=== PATIENT | female | born 1995 | race African-American/Black ===

== ENCOUNTER 2016-10-19 20:29 | Emergency (ER) | payer BC ==
--- NOTE | ~2016-10-19 | CR72 ---
[facility] A Service of [facility] & [facility] RADIOLOGY TEXT RESULTS PATIENT: EV LEIGH LOCATION: [facility] : [birth year] UNIT #: [id number] AGE: [address]: Yissel Chaudhry MD SEX: F ORDER DR: [id number] [facility] [address] [place], [place] [address] [id number] MR#: [id number] Acc #: [id number] NAME: EV LEIGH : 1995 SEX: F STUDY DATE/TIME: UNIT: [facility] ROOM: STUDY DESCRIPTION: CR Chest Single View Portable Attending Physician: Yissel Chaudhry M.D. Ordering Physician: Yissel Chaudhry M.D. Primary Care Physician: Primary Care Physician No MEDICAL IMAGING REPORT This report is preliminary unless electronic signature is present EXAM Portable chest 10/20 and 0037 hours INDICATIONS Fever for the last 2 days with nausea and vomiting. TECHNIQUE/COMPARISON AP portable chest was obtained. No comparison. FINDINGS Cardiac and mediastinal contours are normal. There is some mild left base atelectasis. Lung volumes overall are low. The lungs otherwise are clear. No pneumothorax. IMPRESSION Low-volume inspiration with some mild left base atelectasis. Dictated by... Gaudencio Pena Jr., M.D. THIS IS AN ELECTRONICALLY VERIFIED REPORT Gaudencio Pena Jr., M.D. at 10/20/2016 9:22 PM RLK/rena TD: 10/20/2016 11:56 JOB #: [id number] MEDICAL IMAGING REPORT Page 1 of 1 COPY
--- NOTE | ~2016-10-19 | CT4 ---
[facility] A Service of [facility] & [facility] RADIOLOGY TEXT RESULTS PATIENT: EV LEIGH LOCATION: [facility] : [birth year] UNIT #: [id number] AGE: [address]: Yissel Chaudhry MD SEX: F ORDER DR: [id number] [facility] [address] [place], [place] [address] [id number] MR#: [id number] Acc #: [id number] NAME: EV LEIGH. : 1995 SEX: F STUDY DATE/TIME: 10/20/2016 00:15 UNIT: [facility] ROOM: STUDY DESCRIPTION: CT Abd and Pelv Wo Cont Attending Physician: Yissel Chaudhry M.D. Ordering Physician: Yissel Chaudhry M.D. MEDICAL IMAGING REPORT This report is preliminary unless electronic signature is present EXAM Abdomen and pelvis CT 10/20 at 0015. INDICATIONS Fever with chills and achiness for 2 weeks. Nausea and vomiting and left side abdominal pain as well. TECHNIQUE Axial images were obtained through the abdomen and pelvis without contrast. Multiplanar reformats were obtained. This CT exam was performed with one or more of the following radiation dose reduction techniques: Automatic exposure control, adjustment of mA and/or kV according to patient size, and iterative reconstruction. COMPARISON No comparison. FINDINGS Abdomen: Lung bases are clear. The gallbladder is normal. There is an exophytic cyst arising from the dome of the spleen measuring about 2.2 cm in diameter. No renal or ureteral stones are seen. There is no hydronephrosis. The unenhanced solid organs are otherwise normal. Unopacified GI tract is normal. No free fluid is seen. Pelvis: Urinary bladder is normal. There are no lower ureteral stones. Small volume of free fluid in the cul-de-sac is probably physiologic. Solid pelvic organs are within normal limits. The appendix is normal. The remainder of the unopacified GI tract is normal as well. IMPRESSION 1. No renal or ureteral stones. No hydronephrosis. 2. Normal unopacified GI tract including the appendix. [facility] A Service of [facility] & [facility] RADIOLOGY TEXT RESULTS PATIENT: EV LEIGH LOCATION: [facility] : [birth year] UNIT #: [id number] AGE: [address]: Yissel Chaudhry MD SEX: F ORDER DR: 3. Trace free fluid in the cul-de-sac is probably physiologic in a female of this age. 4. Incidental note is made of a splenic cyst. Dictated by... Gaudencio Pena Jr., M.D. THIS IS AN ELECTRONICALLY VERIFIED REPORT Gaudencio Pena Jr., M.D. at 10/22/2016 9:26 PM CLYDE/lisset TD: 10/20/2016 11:53 JOB #: [id number] MEDICAL IMAGING REPORT Page 1 of 1 COPY
[2016-10-19 23:35] LABS: URINE SOURCE CLEAN CATCH
[2016-10-19 23:43] LABS: URINE APPEARANCE CLEAR; URINE BILIRUBIN NEG (NEG); URINE BLOOD TRACE (NEG); URINE COLOR ORANGE; URINE GLUCOSE >1000 MG/DL (NEG); URINE KETONE 3+ (NEG); URINE LEUKOCYTE ESTERASE 1+ (NEG); URINE NITRATE POS (NEG); URINE PH 7.5 (5-8); URINE PROTEIN NEG (NEG); URINE SPECIFIC GRAVITY 1.027 (1.003-1.035); URINE UROBILINOGEN 0.2 MG/DL (NEG)
[2016-10-19 23:43] LABS: BASOPHIL% 0.1 % (0-2.5); HEMATOCRIT 35.9 % (35.0-45.0); HEMOGLOBIN 11.1 gm/dL (12.0-16.0); LYMPHOCYTE# 0.6 X10e3 (1.0-3.5); LYMPHOCYTE% 4.3 % (17.0-45.0); MEAN CELL VOLUME 78.3 FL (83-96); MEAN CORPUSCULAR HEMOGLOBIN 24.1 PG (28-34); MEAN CORPUSCULAR HGB CONC 30.7 g/dL (30-36); MEAN PLATELET VOLUME 10.3 FL (6.5-11.5); MONOCYTE# 0.8 X10e3 (0-1.0); MONOCYTE% 6.1 % (3.0-12.0); NEUTROPHIL# 12.4 X10e3 (1.5-7.1); NEUTROPHIL% 89.5 % (40-75); PLATELET COUNT 196 X10e3 (140-420); RED BLOOD COUNT 4.59 X10e (3.90-5.30); RED CELL DISTRIBUTION WIDTH 17.6 % (11.0-15.5); WHITE BLOOD COUNT 13.9 X10e3 (4.0-10.5)
[2016-10-19 23:46] LABS: DIFF IND NO
[2016-10-19 23:47] LABS: CULTURE INDICATED? YES; URINE BACTERIA AUWI 4+ (NEGATIVE); URINE SQUAMOUS EPITHELIAL CELL OCC /[HPF]; UWBCS1 AUWI 50-100 (0-5)
[2016-10-20 00:15] LABS: ALBUMIN SERUM 3.9 g/dL (3.5-5.0); BILIRUBIN, DIRECT 0.2 mg/dL (0.0-0.2); BILIRUBIN,INDIRECT 0.9 mg/dL (0.0-0.9); BILIRUBIN,TOTAL 1.1 mg/dL (0.2-2.0); BUN/CREATININE RATIO 12.85; CALCIUM SERUM 8.8 mg/dL (8.4-10.2); CREATININE SERUM 0.7 mg/dL (0.6-1.4); GLOM FILT RATE Estimated 143.5 mL/min (>60); POTASSIUM 3.7 mmol/L (3.5-5.1); PROTEIN TOTAL SERUM 7.3 g/dL (6.0-8.3)
[2016-10-20 01:19] LABS: INFLUENZA A NEG (NEG); INFLUENZA B NEG (NEG)
[2016-10-20 05:45] LABS: BETA HYDROXYBUTYRATE 1.46 MMOL/L (0.02-0.27); BUN/CREATININE RATIO 8.33; CALCIUM SERUM 7.5 mg/dL (8.4-10.2); CREATININE SERUM 0.6 mg/dL (0.6-1.4); POTASSIUM 3.9 mmol/L (3.5-5.1)
== END 2016-10-20 06:08 | disposition home or self-care (01) ==
LOC: CED 20:29 → CFTX 23:59 → CED 23:59
PROVIDERS: Emergency Medicine
DX: E13.10 Other specified diabetes mellitus with ketoacidosis without coma (principal); N39.0 Urinary tract infection, site not specified
CPT/HCPCS: 36415; 71010; 74176; 80048; 80076; 81003; 82010; 83690; 84703; 85025; 87086; 87088; 87186; 87651; 87804; 96361; 96374; 99284; J0696